=== PATIENT | male | born 1960 | race Caucasian/White ===

== ENCOUNTER 2018-07-11 23:26 | Inpatient (IN) | payer BC, OTHER ==
--- NOTE | 2018-07-12 00:22 | ED ---
Psych HPI - General Chief Complaint: Psychiatric Symptoms Stated Complaint: Mental Health Time Seen by Provider: 07/11/18 23:46 Source: police Mode of arrival: ambulatory - History of Present Illness Initial Comments: This patient is a 58-year-old man brought to have a psychiatric evaluation. The patient admits to attending a today, then states she had been doing some drinking. Following that he called his and he admits that he made some suicidal statements. Patient otherwise not discussing the episode that led to him being here. Stating that he just wants to leave. Complaint: other -: hour(s) Associated Psychiatric Symptoms: none History of same: No Improves With: none Worsens With: alcohol Context: recent alcohol abuse Associated Symptoms: denies other symptoms - Related Data Home Medications Medication Instructions Recorded Confirmed No Known Home Medications 07/12/18 07/12/18 Allergies Allergy/AdvReac Type Severity Reaction Status Date / Time No Known Allergies Allergy Verified 07/12/18 07:21 Review of Systems ROS Statement: Those systems with pertinent positive or pertinent negative responses have been documented in the HPI. ROS Other: All systems not noted in ROS Statement are negative. Constitutional: Denies: fever Respiratory: Denies: cough, dyspnea Cardiovascular: Denies: chest pain Gastrointestinal: Denies: abdominal pain Musculoskeletal: Denies: back pain Neurological: Denies: headache Psychiatric: Denies: depression, auditory hallucinations, homicidal thoughts, suicidal thoughts Past Medical History Past Medical History: No Reported History History of Any Multi-Drug Resistant Organisms: None Reported Past Surgical History: No Surgical Hx Reported Past Psychological History: No Psychological Hx Reported Smoking Status: Current every day smoker Past Alcohol Use History: Occasional Past Drug Use History: None Reported General Exam Limitations: no limitations General appearance: alert, appears intoxicated Eye exam: Present: normal appearance. Absent: scleral icterus, conjunctival injection ENT exam: Present: normal oropharynx Neck exam: Present: normal inspection, full ROM. Absent: tenderness Respiratory exam: Present: normal lung sounds bilaterally. Absent: respiratory distress, wheezes, rales, rhonchi, stridor Cardiovascular Exam: Present: regular rate, normal rhythm, normal heart sounds. Absent: systolic murmur, diastolic murmur, rubs, gallop GI/Abdominal exam: Present: soft. Absent: tenderness Neurological exam: Present: alert, oriented X3, CN II-XII intact, normal gait, other (Mild slurring of the speech and mild ataxia). Absent: motor sensory def icit Psychiatric exam: Present: suicidal ideation. Absent: depressed, agitated, anxious, flat affect, manic, homicidal ideation Skin exam: Present: warm, dry, intact, normal color. Absent: rash Course Vital Signs 07/11/18 07/12/18 23:33 06:36 Temperature 98.2 F Pulse Rate 115 H 69 Respiratory 20 16 Rate Blood Pressure 146/81 123/84 O2 Sat by Pulse 96 98 Oximetry Medical Decision Making - Lab Data Result diagrams: 07/13/18 07:50 07/13/18 07:50 Lab Results 07/12/18 Range/Units 00:12 Urine Color Light Yellow Urine Appearance Clear (Clear) Urine pH 6.0 (5.0-8.0) Ur Specific [place] 1.003 (1.001-1.035) Urine Protein Negative (Negative) Urine Glucose (UA) Negative (Negative) Urine Ketones Negative (Negative) Urine Blood Negative (Negative) Urine Nitrite Negative (Negative) Urine Bilirubin Negative (Negative) Urine Urobilinogen <2.0 (<2.0) mg/dL Ur Leukocyte Esterase Negative (Negative) Disposition Clinical Impression: Suicidal ideation Disposition: ADMITTED IP TO THIS [facility] Condition: Fair
[2018-07-12] MEDS ORDERED: ZIPRASIDONE 20 MG VIAL IM PRN (06:09)
[2018-07-12] MEDS ORDERED: MAGNESIUM HYDROXIDE 2,400 MG/10 ML CUP PO PRN (06:09)
[2018-07-12] MEDS ORDERED: LORazepam 1 MG TAB PO PRN (06:09)
[2018-07-12] MEDS ORDERED: ACETAMINOPHEN TAB 325 MG TAB PO PRN (06:09)
[2018-07-12] MEDS ORDERED: MAG HYDROX/AL HYDROX/SIMETH 30 ML CUP PO PRN (06:09)
[2018-07-12 06:40] LABS: Appearance,Urine Clear (Clear); Bilirubin,Urine Negative (Negative); Blood,Urine Negative (Negative); Color,Urine Light Yellow; Glucose,Urine (UA) Negative (Negative); Ketones,Urine Negative (Negative); Leukocyte Esterase,Urine Negative (Negative); Nitrite,Urine Negative (Negative); Protein,Urine Negative (Negative); Specific Gravity,Urine 1.003 (1.001-1.035); Urobilinogen,Urine <2.0 mg/dL (<2.0)
[2018-07-12 06:50] LABS: Amphetamine Screen,Urine Not Detected (NotDetected); Barbiturate Screen,Urine Not Detected (NotDetected); Benzodiazepines Screen,Urine Not Detected (NotDetected); Cocaine Screen,Urine Not Detected (NotDetected); Methadone Screen, Urine Not Detected (NotDetected); Opiate Screen,Urine Not Detected (NotDetected); Oxycodone Screen, Urine Not Detected (NotDetected); Phencyclidine Screen,Urine Not Detected (NotDetected); Tricyclic Antidepressant,Urine Not Detected (NotDetected); Urn Cannabinoid Scrn Not Detected (NotDetected)
[2018-07-12] MEDS: NICOTINE 14MG/24HR PATCH TRANSDERM SCH (09:16)
--- NOTE | 2018-07-12 11:30 | P.HP ---
Psychiatric H&P - . H&P Date: 07/12/18 History & Physical: Allergies Allergy/AdvReac Type Severity Reaction Status Date / Time No Known Allergies Allergy Verified 07/12/18 07:21 Vital Signs Temp 97.8 F 07/12/18 07:18 Pulse 70 07/12/18 07:18 Resp 18 07/12/18 07:18 BP 125/88 07/12/18 07:18 Pulse Ox 98 07/12/18 07:18 Intake & Output 07/11/18 07/12/18 07/12/18 18:59 06:59 18:59 Weight 83.915 kg Laboratory Last Values Urine Color Light Yellow 07/12/18 00:12 Urine Appearance Clear (Clear) 07/12/18 00:12 Urine pH 6.0 (5.0-8.0) 07/12/18 00:12 Ur Specific [place] 1.003 (1.001-1.035) 07/12/18 00:12 Urine Protein Negative (Negative) 07/12/18 00:12 Urine Glucose (UA) Negative (Negative) 07/12/18 00:12 Urine Ketones Negative (Negative) 07/12/18 00:12 Urine Blood Negative (Negative) 07/12/18 00:12 Urine Nitrite Negative (Negative) 07/12/18 00:12 Urine Bilirubin Negative (Negative) 07/12/18 00:12 Urine Urobilinogen <2.0 mg/dL (<2.0) 07/12/18 00:12 Ur Leukocyte Esterase Negative (Negative) 07/12/18 00:12 Urine Opiates Screen Not Detected (NotDetected) 07/12/18 06:36 Ur Oxycodone Screen Not Detected (NotDetected) 07/12/18 06:36 Urine Methadone Screen Not Detected (NotDetected) 07/12/18 06:36 Ur Propoxyphene Screen Not Detected (NotDetected) 07/12/18 06:36 Ur Barbiturates Screen Not Detected (NotDetected) 07/12/18 06:36 U Tricyclic Antidepress Not Detected (NotDetected) 07/12/18 06:36 Ur Phencyclidine Scrn Not Detected (NotDetected) 07/12/18 06:36 Ur Amphetamines Screen Not Detected (NotDetected) 07/12/18 06:36 U Methamphetamines Scrn Not Detected (NotDetected) 07/12/18 06:36 U Benzodiazepines Scrn Not Detected (NotDetected) 07/12/18 06:36 Urine Cocaine Screen Not Detected (NotDetected) 07/12/18 06:36 U Marijuana (THC) Screen Not Detected (NotDetected) 07/12/18 06:36 Assessment and Plan Assessment: This patient is a 58-year-old man brought to have a psychiatric evaluation. The patient admits to attending a today, then states she had been doing some drinking. Following that he called his and he admits that he made some suicidal statements. Patient otherwise not discussing the episode that led to him being here. Stating that he just wants to leave. Patient called his and was going to shoot himself. Patients called the api developer. Patient brought to ER by police. Per petition the patient had made suicidal statements to his and stated he was going to shoot himself. Also per petition there was a loaded gun found in the bathroom. UPon assessment by this proposal lead writer the patient is irritable and has angry undertones. Answers many questions with "I don't know." Patient states "Me and the are not seeing eye to eye." and "It's just a long series of these events." Patient would not explain what he meant by the statements of "these events." Spoke with patient's who petitioned the patient and she stated earlier in the day they had a small ar gument and he had been drinking. She states when he drinks he gets more argumentative and angry. states she did not want to be home when he was like that so she went to stay the night at her daughter's house and the patient repeatedly called her and made a statement to her that he was going to shoot himself in the bathroom so it would not make a big mess and told his to have a nice life. Pt was not very cooperative with assessment. Per pt's he does drink and states he becomes angry and argumentative and the drinking has gotten worse MD Complaint: other -: hour(s) Associated Psychiatric Symptoms: none History of same: No Improves With: none Worsens With: alcohol Context: recent alcohol abuse Associated Symptoms: denies other symptoms - Related Data Allergies Allergy/AdvReac Type Severity Reaction Status Date / Time No Known Allergies Allergy Verified 07/11/18 23:36 Past Medical History Past Medical History: No Reported History History of Any Multi-Drug Resistant Organisms: None Reported Past Surgical History: No Surgical Hx Reported Past Psychological History: No Psychological Hx Reported Smoking Status: Current every day smoker Past Alcohol Use History: Occasional Past Drug Use History: None Reported Musculoskeletal Examination - Abnormal/Involuntary Movements: [none Strength: [greater than antigravity (greater than/equal to 3/5) in all extremities:] Muscle Tone: [no impairment Gait: [grossly normal Station: [grossly normal Mental Status Examination - General Appearance: [well groomed, casual, appears older than stated age Speech/Language: [spontaneous, soft Attitude/Behavior: [cooperative Mood: [anxious, elated, irritable, angry, fearful, hopelessness Affect: [ lively, labile, blunted constricted, other] Orientation: [time, person, place situation] Thought Content: [wnl, delusions, obsessions, phobias, other] Risk Factors: [Admits to suicidal (ideations, plan), and/or Homicidal (ideations, plan), other] Perception: [wnl, denies hallucinations (auditory, visual, tactile), other] Thought Processes: [ concrete, circumstantial, tangential] Concentration/Attention Span: [wnl, impaired] [Per observation and interview with the patient] Recent Memory: [wnl Remote Memory: [wnl] [past events, as related history] Intelligence: [ average] [based on history, based on vocabulary, syntax, grammar, and content] Judgement: [ fair] [per patient's behavior/history of present illness] Insight: [ fair] [understanding severity of illness/history of present illness] Admitting Diagnosis: [Major depressive disorder single episode severe] Patient Strengths - Personal Skills: [x] Achievements: [x] Steady employment/financial stability: [x] Housing stability: [x] Patient Limitations: [ pathological/unsupported environment Initial Plan of Care: [He was admitted on an involuntary basis due to his wanting to kill himself with a gun stating that to his . He had evaluated by medicine psychiatry nursing staff sr. social media & mobile manager and occupational therapy. He will placed on 15 minute checks and usual protocol for the unit. He'll be further evaluated and biopsychosocial history and further have an understanding of appropriate treatment. He does not want to take any medications therefore weight for court hearing.] Estimated Length of Stay: [] Initial Discharge Plan: [home, [facility], referred to therapist, partial hospital, intensive outpatient, residential placement, other] Prognosis: [good, fair, guarded] Justification for Inpatient Hospitalization - [ depression resulting in significant loss of functioning.] [Dangerous to self, others, or property with need for controlled environment.] [Emotional or behavioral conditions and complications requiring 24 hour medical and nursing care.] [Need for special drug therapy, or other therapeutic program requiring continuous hospitalization.] [Failure of social or occupational functioning.] [Legally mandated admission.] (1) Major depressive disorder Current Visit: Yes Status: Acute Code(s): F32.9 - MAJOR DEPRESSIVE DISORDER, SINGLE EPISODE, UNSPECIFIED SNOMED Code(s): 250773180 Time with Patient: Less than 30
--- NOTE | 2018-07-12 11:54 | P.HPMEDMHU ---
History of Present Illness H&P Date: 07/12/18 (Consult from Dr. Ellis) Chief Complaint: Consult for U HPI The patient is a 58-year-old male with a past medical history of osteoarthritis in his neck and lower back with history of herniated disks that is admitted to the mental health unit after he was petitioned by his after expressing suicidal ideation at home. Apparently the patient had been drinking and stated to his is going to shoot himself after which the patient's called the local PD where apparently a loaded gun was found in the bathroom. During my interview the patient is denying any suicidal ideation and reports that he would not actually hurt himself or anyone around him. He denies any previous history of depression, denies any previous inpatient psychiatry treatment. His only complaints are of occasional neck pain and back pain, denies any chest pain shortness of breath nausea vomiting or abdominal pain. On admission his urinalysis was normal and his UDS was negative for any controlled substances Review of Systems Pertinent positives per HPI all other systems otherwise negative Past Medical History Past Medical History: No Reported History History of Any Multi-Drug Resistant Organisms: None Reported Past Surgical History: No Surgical Hx Reported Past Psychological History: No Psychological Hx Reported Smoking Status: Current every day smoker Past Alcohol Use History: Occasional Past Drug Use History: None Reported Medications and Allergies Home Medications Medication Instructions Recorded Confirmed Type No Known Home Medications 07/12/18 07/12/18 History Allergies Allergy/AdvReac Type Severity Reaction Status Date / Time No Known Allergies Allergy Verified 07/12/18 07:21 Physical Exam Vitals: Vital Signs Temp Pulse Pulse Resp BP BP Pulse Ox 07/12/18 07:18 97.8 F 70 18 125/88 98 07/12/18 06:36 69 16 123/84 98 07/11/18 23:33 98.2 F 115 H 20 146/81 96 Intake and Output 07/11/18 07/12/18 07/12/18 22:59 06:59 14:59 Other: Weight 83.915 kg Constitutional: No acute distress, conversant, pleasant Eyes: Anicteric sclerae, moist conjunctiva, no lid-lag, PERRLA ENMT: NC/AT,Oropharynx clear, no erythema, exudates Neck:Supple, FROM, no masses, or JVD, No carotid bruits; No thyromegaly Lungs: Clear to auscultation, Clear to percussion, Normal respiratory effort, no accessory muscle use Cardiovascular: Heart regular in rate and rhythm, No murmurs, gallops, or rubs no peripheral edema Abdominal: Soft Nontender, nom distended, no guarding, no rebound or rigidity, Normoactive bowel sounds No hepatomegaly, No splenomegaly, No palpable mass No abdominal wall hernia noted Skin: Normal temperature, tone, texture, turgor, No induration No subcutaneous nodules, No rash, lesions, No ulcers Extremities:No digital cyanosis No clubbing, Pedal pulses intact and symmetrical Radial pulses intact and symmetrical Normal gait and station, No calf tenderness Psychiatric: Alert and oriented to person, place and time,flat affect Neuro: Muscles Strength 5/5 in all 4 extremities, Sensation to light touch gr ossly present throughout, Cranial nerves II-XII grossly intact. No focal sensory deficits Cranial Nerve Examination - Cranial Nerves Cranial Nerve II- Optic: Intact Cranial Nerve III- Oculomotor: Intact Cranial Nerve IV- Trochlear: Intact Cranial Nerve V- Trigeminal: Intact Cranial Nerve - Abducens: Intact Cranial Nerve VII- Facial: Intact Cranial Nerve VIII- Auditory: Intact Cranial Nerve IX- Glossopharyngeal: Intact Cranial Nerve X- Vagus: Intact Cranial Nerve XI- Accessory: Intact Cranial Nerve XII- Hypoglossal: Intact Assessment and Plan (1) Suicidal ideation Current Visit: Yes Status: Acute Code(s): R45.851 - SUICIDAL IDEATIONS SNOMED Code(s): 1670472 (2) Major depressive disorder Current Visit: Yes Status: Acute Code(s): F32.9 - MAJOR DEPRESSIVE DISORDER, SINGLE EPISODE, UNSPECIFIED SNOMED Code(s): 307840860 (3) Osteoarthritis Current Visit: Yes Status: Acute Code(s): M19.90 - UNSPECIFIED OSTEOARTHRITIS, UNSPECIFIED SITE SNOMED Code(s): 184962709 Plan: The patient is admitted to the acute inpatient psychiatric team will defer to them regarding ongoing psychotropic and cognitive behavioral therapy treatment and management. Medically speaking the patient is medically stable and has no significant complaints. Pending his admissions labs will plan to sign off on the patient. Appreciate the opportunity to be involved in ongoing care of this patient, for further concerns please don't hesitate to contact the [facility] inpatient team
[2018-07-13 07:01] VITALS: RESP 16
[2018-07-13 08:28] LABS: Basophils # (A) 0.1 k/uL (0-0.2); Basophils % (A) 1 %; Eosinophils # (A) 0.1 k/uL (0-0.7); Eosinophils % (A) 3 %; HCT 47.6 % (39.0-53.0); HGB 15.4 gm/dL (13.0-17.5); Lymphocytes % (A) 18 %; MCH 32.7 pg (25.0-35.0); MCHC 32.4 g/dL (31.0-37.0); MCV 101.1 fL (80.0-100.0); Mean Platelet Volume 7.7; Monocytes # (A) 0.4 k/uL (0-1.0); Monocytes % (A) 7 %; Neutrophils # (A) 3.8 k/uL (1.3-7.7); Neutrophils % (A) 68 %; Platelet Count 242 k/uL (150-450); RBC 4.71 m/uL (4.30-5.90); RDW 12.4 % (11.5-15.5); WBC 5.6 k/uL (3.8-10.6)
[2018-07-13 08:36] LABS: ALT 30 U/L (21-72); AST 29 U/L (17-59); Albumin 4.2 g/dL (3.5-5.0); Alkaline Phosphatase 55 U/L (38-126); Anion Gap 6 mmol/L; Blood Urea Nitrogen 11 mg/dL (9-20); Calcium 9.6 mg/dL (8.4-10.2); Carbon Dioxide 28 mmol/L (22-30); Chloride 106 mmol/L (98-107); Cholesterol 162 mg/dL (<200); Glucose 96 mg/dL (74-99); HDL Cholesterol 64 mg/dL (40-60); LDL Cholesterol,Calculated 84 mg/dL (0-99); Sodium 140 mmol/L (137-145); Total Protein 7.1 g/dL (6.3-8.2); Triglycerides 72 mg/dL (<150)
[2018-07-13] MEDS: NICOTINE 14MG/24HR PATCH TRANSDERM SCH (09:55)
--- NOTE | 2018-07-13 11:28 | P.PN ---
Subjective Progress Note Date: 07/13/18 Principal diagnosis: Major depressive disorder single episode severe] This is a 58-year-old male who states that he called his state he was suicidal to get her attention because they live in separate bedrooms and they hardly talk. He is very difficult to explain himself has a loss for words and denies being depressed. He states it was probably not a good idea to his [id number] since [id number] killed himself couple years ago. He lacks any insight into how to communicate with his spouse as well as with other people. Objective - Vital Signs Vital signs: Vital Signs Temp 98.5 F 07/13/18 06:25 Pulse 60 07/13/18 06:25 Resp 16 07/13/18 06:25 BP 146/79 07/13/18 06:25 Pulse Ox 98 07/12/18 07:18 Intake & Output 07/12/18 07/13/18 07/13/18 18:59 06:59 18:59 Weight 87.098 kg - Labs CBC & Chem 7: 07/13/18 07:50 07/13/18 07:50 Labs: Abnormal Lab Results - Last 24 Hours (Table) 07/13/18 07/13/18 Range/Units 07:50 07:50 MCV 101.1 H (80.0-100.0) fL HDL Cholesterol 64 H (40-60) mg/dL Assessment and Plan Assessment: This patient is a 58-year-old man brought to have a psychiatric evaluation. The patient admits to attending a today, then states she had been doing some drinking. Following that he called his and he admits that he made some suicidal statements. Patient otherwise not discussing the episode that led to him being here. Stating that he just wants to leave. Patient called his and was going to shoot himself. Patients called the human resources compensation analyst. Patient brought to ER by police. Per petition the patient had made suicidal statements to his and stated he was going to shoot himself. Also per petition there was a loaded gun found in the bathroom. Upon assessment by staff the patient is irritable and has angry undertones. Answers many questions with "I don't know." Patient states "Me and the are not seeing eye to eye." and "It's just a long series of these events." Patient would not explain what he meant by the statements of "these events." Spoke with patient's who petitioned the patient and she stated earlier in the day they had a small argument and he had been drinking. She states when he drinks he gets more argumentative and angry. states she did not want to be home when he was like that so she went to stay the night at her daughter's house and the patient repeatedly called her and made a statement to her that he was going to shoot himself in the bathroom so it would not make a big mess and told his to have a nice life. Pt was not very cooperative with assessment. Per pt's he does drink and s tates he becomes angry and argumentative and the drinking has gotten worse MD Complaint: other -: hour(s) Associated Psychiatric Symptoms: none History of same: No Improves With: none Worsens With: alcohol Context: recent alcohol abuse Associated Symptoms: denies other symptoms - Related Data Allergies Allergy/AdvReac Type Severity Reaction Status Date / Time No Known Allergies Allergy Verified 07/11/18 23:36 Past Medical History Past Medical History: No Reported History History of Any Multi-Drug Resistant Organisms: None Reported Past Surgical History: No Surgical Hx Reported Past Psychological History: No Psychological Hx Reported Smoking Status: Current every day smoker Past Alcohol Use History: Occasional Past Drug Use History: None Reported Musculoskeletal Examination - Abnormal/Involuntary Movements: [none Strength: [greater than antigravity (greater than/equal to 3/5) in all extremities:] Muscle Tone: [no impairment Gait: [grossly normal Station: [grossly normal Mental Status Examination - General Appearance: [well groomed, casual, appears older than stated age Speech/Language: [spontaneous, soft Attitude/Behavior: [cooperative Mood: [anxious, elated, irritable, angry, fearful, hopelessness Affect: [ lively, labile, blunted constricted, other] Orientation: [time, person, place situation] Thought Content: [wnl, delusions, obsessions, phobias, other] Risk Factors: [Admits to suicidal (ideations, plan), and/or Homicidal (ideations, plan), other] Perception: [wnl, denies hallucinations (auditory, visual, tactile), other] Thought Processes: [ concrete, circumstantial, tangential] Concentration/Attention Span: [wnl, impaired] [Per observation and interview with the patient] Recent Memory: [wnl Remote Memory: [wnl] [past events, as related history] Intelligence: [ average] [based on history, based on vocabulary, syntax, grammar, and content] Judgement: [ fair] [per patient's behavior/history of present illness] Insight: [ fair] [understanding severity of illness/history of present illness] Admitting Diagnosis: [Major depressive disorder single episode severe] Patient Strengths - Personal Skills: [x] Achievements: [x] Steady employment/financial stability: [x] Housing stability: [x] Patient Limitations: [ pathological/unsupported environment Initial Plan of Care: [He was admitted on an involuntary basis due to his wanting to kill himself with a gun stating that to his . He had evaluated by medicine psychiatry nursing staff director social service and occupational therapy. He will placed on 15 minute checks and usual protocol for the unit. He'll be further evaluated and biopsychosocial history and further have an understanding of appropriate treatment. He does not want to take any medications therefore weight for court hearing.] Estimated Length of Stay: [5 days] Initial Discharge Plan: [home, [facility], referred to therapist, partial hospital, intensive outpatient, residential placement, other] Prognosis: [good, fair, guarded] Justification for Inpatient Hospitalization - [ depression resulting in significant loss of functioning.] [Dangerous to self, others, or property with need for controlled environment.] [Emotional or behavioral conditions and complications requiring 24 hour medical and nursing care.] [Need for special drug therapy, or other therapeutic program requiring continuous hospitalization.] [Failure of social or occupational functioning.] [Legally mandated admission.] (1) Major depressive disorder Current Visit: Yes Status: Acute Code(s): F32.9 - MAJOR DEPRESSIVE DISORDER, SINGLE EPISODE, UNSPECIFIED SNOMED Code(s): 308636246 Plan: He is involuntary and resistant to take any medications at this time. I think would be helpful to have a family meeting with the to get a better understa nding of his biopsychosocial standing in light since he is a very poor historian and gives cryptic answers and pleads with you to leave the hospital. Time with Patient: Less than 30
[2018-07-14] MEDS: NICOTINE 14MG/24HR PATCH TRANSDERM SCH (07:55)
[2018-07-14 12:23] LABS: Hemoglobin A1C 5.6 % (4.0-6.0)
--- NOTE | 2018-07-14 14:02 | P.PN ---
Subjective Progress Note Date: 07/14/18 Principal diagnosis: Major depressive disorder single episode severe] This is a 58-year-old male who states that he called his state he was suicidal to get her attention because they live in separate bedrooms and they hardly talk. He is very difficult to explain himself has a loss for words and denies being depressed. He states it was probably not a good idea to his [id number] since [id number] killed himself couple years ago. He lacks any insight into how to communicate with his spouse as well as with other people. 07/14/2018: This 58-year-old male has no insight why he would try to commit suicide nor does he have any insight into his own emotions. He acts very childlike at time wanting to talk to his but has nothing to say to her. He is very cryptic and not very enlightened regarding his mood. Objective - Vital Signs Vital signs: Vital Signs Temp 97.6 F 07/14/18 06:18 Pulse 62 07/14/18 06:18 Resp 16 07/14/18 06:18 BP 122/76 07/14/18 06:18 Pulse Ox 98 07/12/18 07:18 Intake & Output 07/13/18 07/14/18 07/14/18 18:59 06:59 18:59 Weight 87.098 kg - Labs CBC & Chem 7: 07/13/18 07:50 07/13/18 07:50 Assessment and Plan Assessment: This patient is a 58-year-old man brought to have a psychiatric evaluation. The patient admits to attending a today, then states she had been doing some drinking. Following that he called his and he admits that he made some suicidal statements. Patient otherwise not discussing the episode that led to him being here. Stating that he just wants to leave. Patient called his and was going to shoot himself. Patients called the mail messenger. Patient brought to ER by police. Per petition the patient had made suicidal statements to his and stated he was going to shoot himself. Also per petition there was a loaded gun found in the bathroom. Upon assessment by staff the patient is irritable and has angry undertones. Answers many questions with "I don't know." Patient states "Me and the are not seeing eye to eye." and "It's just a long series of these events." Patient would not explain what he meant by the statements of "these events." Spoke with patient's who petitioned the patient and she stated earlier in the day they had a small argument and he had been drinking. She states when he drinks he gets more argu mentative and angry. states she did not want to be home when he was like that so she went to stay the night at her daughter's house and the patient repeatedly called her and made a statement to her that he was going to shoot himself in the bathroom so it would not make a big mess and told his to have a nice life. Pt was not very cooperative with assessment. Per pt's he does drink and states he becomes angry and argumentative and the drinking has gotten worse MD Complaint: other -: hour(s) Associated Psychiatric Symptoms: none History of same: No Improves With: none Worsens With: alcohol Context: recent alcohol abuse Associated Symptoms: denies other symptoms - Related Data Allergies Allergy/AdvReac Type Severity Reaction Status Date / Time No Known Allergies Allergy Verified 07/11/18 23:36 Past Medical History Past Medical History: No Reported History History of Any Multi-Drug Resistant Organisms: None Reported Past Surgical History: No Surgical Hx Reported Past Psychological History: No Psychological Hx Reported Smoking Status: Current every day smoker Past Alcohol Use History: Occasional Past Drug Use History: None Reported Musculoskeletal Examination - Abnormal/Involuntary Movements: [none Strength: [greater than antigravity (greater than/equal to 3/5) in all extremities:] Muscle Tone: [no impairment Gait: [grossly normal Station: [grossly normal Mental Status Examination - General Appearance: [well groomed, casual, appears older than stated age Speech/Language: [spontaneous, soft Attitude/Behavior: [cooperative Mood: [anxious, elated, irritable, angry, fearful, hopelessness Affect: [ lively, labile, blunted constricted, other] Orientation: [time, person, place situation] Thought Content: [wnl, delusions, obsessions, phobias, other] Risk Factors: [Admits to suicidal (ideations, plan), and/or Homicidal (ideations, plan), other] Perception: [wnl, denies hallucinations (auditory, visual, tactile), other] Thought Processes: [ concrete, circumstantial, tangential] Concentration/Attention Span: [wnl, impaired] [Per observation and interview with the patient] Recent Memory: [wnl Remote Memory: [wnl] [past events, as related history] Intelligence: [ average] [based on history, based on vocabulary, syntax, grammar, and content] Judgement: [ fair] [per patient's behavior/history of present illness] Insight: [ fair] [understanding severity of illness/history of present illness] Admitting Diagnosis: [Major depressive disorder single episode severe] Patient Strengths - Personal Skills: [x] Achievements: [x] Steady employment/financial stability: [x] Housing stability: [x] Patient Limitations: [ pathological/unsupported environment Initial Plan of Care: [He was admitted on an involuntary basis due to his wanting to kill himself with a gun stating that to his . He had evaluated by medicine psychiatry nursing staff social services specialist and occupational therapy. He will placed on 15 minute checks and usual protocol for the unit. He'll be further evaluated and biopsychosocial history and further have an understanding of appropriate treatment. He does not want to take any medications therefore weight for court hearing.] Estimated Length of Stay: [5 days] Initial Discharge Plan: [home, [facility], referred to therapist, partial hospital, intensive outpatient, residential placement, other] Prognosis: [good, fair, guarded] Justification for Inpatient Hospitalization - [ depression resulting in significant loss of functioning.] [Dangerous to self, others, or property with need for controlled environment.] [Emotional or behavioral conditions and complications requiring 24 hour medical and nursing care.] [Need for special drug therapy, or other therapeutic program requiring continuous hospitalization.] [Failure of social or occupational functioning.] [Legally mandated admission.] (1) Major depressive disorder Current Visit: Yes Status: Acute Code(s): F32.9 - MAJOR DEPRESSIVE DISORDER, SINGLE EPISODE, UNSPECIFIED SNOMED Code(s): 368527871 Plan: He is involuntary and resistant to take any medications at this time. I think would be helpful to have a family meeting with the to get a better unde rstanding of his biopsychosocial standing in light since he is a very poor historian and gives cryptic answers and pleads with you to leave the hospital. 07/14/2018: He is mandated for involuntary psychiatric treatment [facility]. Now waiting his probate Court hearing for treatment of his mental illness depression. Time with Patient: Less than 30
[2018-07-15] MEDS: NICOTINE 14MG/24HR PATCH TRANSDERM SCH (08:29)
--- NOTE | 2018-07-15 13:01 | P.PN ---
Subjective Progress Note Date: 07/15/18 Principal diagnosis: Major depressive disorder single episode severe] This is a 58-year-old male who states that he called his state he was suicidal to get her attention because they live in separate bedrooms and they hardly talk. He is very difficult to explain himself has a loss for words and denies being depressed. He states it was probably not a good idea to his [id number] since [id number] killed himself couple years ago. He lacks any insight into how to communicate with his spouse as well as with other people. 07/14/2018: This 58-year-old male has no insight why he would try to commit suicide nor does he have any insight into his own emotions. He acts very childlike at time wanting to talk to his but has nothing to say to her. He is very cryptic and not very enlightened regarding his mood. 07/15/2018: This is a 58-year-old male who still shows little insight about his impulsive desire to get the attention of his by stating that he wants to kill himself with a gun. He also isn't marycruz denial about his alcoholism. He is a high risk if he leaves now for he will go drink and . Objective - Vital Signs Vital signs: Vital Signs Temp 97.7 F 07/15/18 06:05 Pulse 80 07/15/18 06:05 Resp 16 07/15/18 06:05 BP 127/78 07/15/18 06:05 Pulse Ox 98 07/12/18 07:18 - Labs CBC & Chem 7: 07/13/18 07:50 07/13/18 07:50 Assessment and Plan Assessment: This patient is a 58-year-old man brought to have a psychiatric evaluation. The patient admits to attending a today, then states she had been doing some drinking. Following that he called his and he admits that he made some suicidal statements. Patient otherwise not discussing the episode that led to him being here. Stating that he just wants to leave. Patient called his and was going to shoot himself. Patients called the world renowned chef and restaurant owner. Patient brought to ER by police. Per petition the patient had made suicidal statements to his and stated he was going to shoot himself. Also per petition there was a loaded gun found in the bathroom. Upon assessment by staff the patient is irritable and has angry undertones. Answers many questions with "I don't know." Patient states "Me and the are not seeing eye to eye." and "It's just a long series of these events." Patient would not explain what he meant by the statements of "these events." Spoke with patient's who petitioned the patient and she stated earlier in the day they had a small argument and he had been drinking. She states when he drinks he gets more argumentative and angry. states she did not want to be home when he was like that so she went to stay the night at her daughter's house and the patient repeatedly called her and made a statement to her that he was going to shoot himself in the bathroom so it would not make a big mess and told his to have a nice life. Pt was not very cooperative with assessment. Per pt's he does drink and states he becomes angry and argumentative and the drinking has gotten worse MD Complaint: other -: hour(s) Associated Psychiatric Symptoms: none History of same: No Improves With: none Worsens With: alcohol Context: recent alcohol abuse Associated Symptoms: denies other symptoms - Related Data Allergies Allergy/AdvReac Type Severity Reaction Status Date / Time No Known Allergies Allergy Verified 07/11/18 23:36 Past Medical History Past Medical History: No Reported History History of Any Multi-Drug Resistant Organisms: None Reported Past Surgical History: No Surgical Hx Reported Past Psychological History: No Psychological Hx Reported Smoking Status: Current every day smoker Past Alcohol Use History: Occasional Past Drug Use History: None Reported Musculoskeletal Examination - Abnormal/Involuntary Movements: [none Strength: [greater than antigravity (greater than/equal to 3/5) in all extremities:] Muscle Tone: [no impairment Gait: [grossly normal Station: [grossly normal Mental Status Examination - General Appearance: [well groomed, casual, appears older than stated age Speech/Language: [spontaneous, soft Attitude/Behavior: [cooperative Mood: [anxious, elated, irritable, angry, fearful, hopelessness Affect: [ lively, labile, blunted constricted, other] Orientation: [time, person, place situation] Thought Content: [wnl, delusions, obsessions, phobias, other] Risk Factors: [Admits to suicidal (ideations, plan), and/or Homicidal (ideations, plan), other] Perception: [wnl, denies hallucinations (auditory, visual, tactile), other] Thought Processes: [ concrete, circumstantial, tangential] Concentration/Attention Span: [wnl, impaired] [Per observation and interview with the patient] Recent Memory: [wnl Remote Memory: [wnl] [past events, as related history] Intelligence: [ average] [based on history, based on vocabulary, syntax, grammar, and content] Judgement: [ fair] [per patient's behavior/history of present illness] Insight: [ fair] [understanding severity of illness/history of present illness] Admitting Diagnosis: [Major depressive disorder single episode severe; alcohol use disorder severe] Initial Plan of Care: [He was admitted on an involuntary basis due to his wanting to kill himself with a gun stating that to his . He had evaluated by medicine psychiatry nursing staff social media specialist and occupational therapy. He will placed on 15 minute checks and usual protocol for the unit. He'll be further evaluated and biopsychosocial history and further have an understanding of appropriate treatment. He does not want to take any medications therefore weight for court hearing.] Estimated Length of Stay: [5 days] Initial Discharge Plan: [ residential placement for substance abuse] Prognosis: [ fair] Justification for Inpatient Hospitalization - [ depression resulting in significant loss of functioning.] [Dangerous to self, others, or property with need for controlled environment.] [Emotional or behavioral conditions and complications requiring 24 hour medical and nursing care.] [Need for special drug therapy, or other therapeutic program requiring continuou s hospitalization.] [Failure of social or occupational functioning.] [Legally mandated admission.] (1) Major depressive disorder Current Visit: Yes Status: Acute Code(s): F32.9 - MAJOR DEPRESSIVE DISORDER, SINGLE EPISODE, UNSPECIFIED SNOMED Code(s): 333513036 Plan: He is involuntary and resistant to take any medications at this time. I think would be helpful to have a family meeting with the to get a better understanding of his biopsychosocial standing in light since he is a very poor historian and gives cryptic answers and pleads with you to leave the hospital. 07/14/2018: He is mandated for involuntary psychiatric treatment here at [facility]. Now waiting his probate Court hearing for treatment of his mental illness depression. 07/15/2018: Reviewed in detail today with patient have his impulsive nature and will use Zoloft 25 mg by mouth daily at bedtime and ReVia 50 mg by mouth daily at bedtime. He is to find a residential treatment facility to go to sense that he was released today is at high risk of relapse and more impulsive behavior. 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 Time with Patient: Less than 30
[2018-07-15] MEDS: NALTREXONE HCL 50 MG TAB PO SCH (21:05)
[2018-07-15] MEDS: SERTRALINE 25 MG TAB PO SCH (21:07)
[2018-07-16] MEDS: NICOTINE 14MG/24HR PATCH TRANSDERM SCH (13:08)
--- NOTE | 2018-07-16 13:53 | P.PN ---
Subjective Progress Note Date: 07/16/18 Principal diagnosis: Major depressive disorder single episode severe] This is a 58-year-old male who states that he called his state he was suicidal to get her attention because they live in separate bedrooms and they hardly talk. He is very difficult to explain himself has a loss for words and denies being depressed. He states it was probably not a good idea to his [id number] since fixedgz-hc-[id number] killed himself couple years ago. He lacks any insight into how to communicate with his spouse as well as with other people. 07/14/2018: This 58-year-old male has no insight why he would try to commit suicide nor does he have any insight into his own emotions. He acts very childlike at time wanting to talk to his but has nothing to say to her. He is very cryptic and not very enlightened regarding his mood. 07/15/2018: This is a 58-year-old male who still shows little insight about his impulsive desire to get the attention of his by stating that he wants to kill himself with a gun. He also isn't marycruz denial about his alcoholism. He is a high risk if he leaves now for he will go drink and . 07/16/2018: This 58-year-old male had a meeting with his yesterday and admits that he does have alcohol use disorder severe is willing to go to treatment 30 day period he was able to take his medications last night and Zoloft and ReVia without side effects. Objective - Vital Signs Vital signs: Vital Signs Temp 98.1 F 07/16/18 06:58 Pulse 61 07/16/18 06:58 Resp 16 07/16/18 06:58 BP 135/81 07/16/18 06:58 Pulse Ox 98 07/12/18 07:18 - Labs CBC & Chem 7: 07/13/18 07:50 07/13/18 07:50 Assessment and Plan Assessment: This patient is a 58-year-old man brought to have a psychiatric evaluation. The patient admits to attending a today, then states she had been doing some drinking. Following that he called his and he admits that he made some suicidal statements. Patient otherwise not discussing the episode that led to him being here. Stating that he just wants to leave. Patient called his and was going to shoot himself. Patients called the biophysics professor. Patient brought to ER by police. Per petition the patient had made suicidal statements to his and stated he was going to shoot himself. Also per petition there was a loaded gun found in the bathroom. Upon assessment by staff the patient is irritable and has angry undertones. Answers many questions with "I don't know." Patient states "Me and the are not seeing eye to eye." and "It's just a long series of these events." Patient would not explain what he meant by the statements of "these events." Spoke with patient's who petitioned the patient and she stated earlier in the day they had a small argument and he had been drinking. She states when he drinks he gets more argumentative and angry. states she did not want to be home when he was like that so she went to stay the night at her daughter's house and the patient repeatedly called her and made a statement to her that he was going to shoot himself in the bathroom so it would not make a big mess and told his to rojas ve a nice life. Pt was not very cooperative with assessment. Per pt's he does drink and states he becomes angry and argumentative and the drinking has gotten worse MD Complaint: other -: hour(s) Associated Psychiatric Symptoms: none History of same: No Improves With: none Worsens With: alcohol Context: recent alcohol abuse Associated Symptoms: denies other symptoms - Related Data Allergies Allergy/AdvReac Type Severity Reaction Status Date / Time No Known Allergies Allergy Verified 07/11/18 23:36 Past Medical History Past Medical History: No Reported History History of Any Multi-Drug Resistant Organisms: None Reported Past Surgical History: No Surgical Hx Reported Past Psychological History: No Psychological Hx Reported Smoking Status: Current every day smoker Past Alcohol Use History: Occasional Past Drug Use History: None Reported Musculoskeletal Examination - Abnormal/Involuntary Movements: [none Strength: [greater than antigravity (greater than/equal to 3/5) in all extremities:] Muscle Tone: [no impairment Gait: [grossly normal Station: [grossly normal Mental Status Examination - General Appearance: [well groomed, casual, appears older than stated age Speech/Language: [spontaneous, soft Attitude/Behavior: [cooperative Mood: [anxious, elated, irritable, angry, fearful, hopelessness Affect: [ lively, labile, blunted constricted, other] Orientation: [time, person, place situation] Thought Content: [wnl, delusions, obsessions, phobias, other] Risk Factors: [Admits to suicidal (ideations, plan), and/or Homicidal (ideations, plan), other] Perception: [wnl, denies hallucinations (auditory, visual, tactile), other] Thought Processes: [ concrete, circumstantial, tangential] Concentration/Attention Span: [wnl, impaired] [Per observation and interview with the patient] Recent Memory: [wnl Remote Memory: [wnl] [past events, as related history] Intelligence: [ average] [based on history, based on vocabulary, syntax, grammar, and content] Judgement: [ fair] [per patient's behavior/history of present illness] Insight: [ fair] [understanding severity of illness/history of present illness] Admitting Diagnosis: [Major depressive disorder single episode severe; alcohol use disorder severe] Initial Plan of Care: [He was admitted on an involuntary basis due to his wanting to kill himself with a gun stating that to his . He had evaluated by medicine psychiatry nursing staff community mental health social worker and occupational therapy. He will placed on 15 minute checks and usual protocol for the unit. He'll be fur ther evaluated and biopsychosocial history and further have an understanding of appropriate treatment. He does not want to take any medications therefore weight for court hearing.] Estimated Length of Stay: [2 days] Initial Discharge Plan: [ residential placement for substance abuse] Prognosis: [ fair] Justification for Inpatient Hospitalization - [ depression resulting in significant loss of functioning.] [Dangerous to self, others, or property with need for controlled environment.] [Emotional or behavioral conditions and complications requiring 24 hour medical and nursing care.] [Need for special drug therapy, or other therapeutic program requiring continuous hospitalization.] [Failure of social or occupational functioning.] [Legally mandated admission.] (1) Major depressive disorder Current Visit: Yes Status: Acute Code(s): F32.9 - MAJOR DEPRESSIVE DISORDER, SINGLE EPISODE, UNSPECIFIED SNOMED Code(s): 949392675 Plan: He is involuntary and resistant to take any medications at this time. I think would be helpful to have a family meeting with the to get a better understanding of his biopsychosocial standing in light since he is a very poor historian and gives cryptic answers and pleads with you to leave the hospital. 07/14/2018: He is mandated for involuntary psychiatric treatment here at [address] [place] [address]. Now waiting his probate [address] hearing for treatment of his mental illness depression. 07/15/2018: Reviewed in detail today with patient have his impulsive nature and will use Zoloft 25 mg by mouth daily at bedtime and ReVia 50 mg by mouth daily at bedtime. He is to find a residential treatment facility to go to sense that he was released today is at high risk of relapse and more impulsive behavior. 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 07/16/2018: Reviewed in detail with the patient regarding his impulsive nature i llness discussed yesterday and he was able to tolerate Zoloft at bedtime and ReVia without consequence. He has a much brighter affect today and more engaged in treatment. He is a high risk if he goes home now he will relapse in drinking and his won't let him home as well without substance abuse treatment. Time with Patient: Less than 30
[2018-07-16] MEDS: MULTIVITAMINS, THERA 1 EACH TAB PO SCH (16:45)
[2018-07-16] MEDS: SERTRALINE 25 MG TAB PO SCH (21:00)
[2018-07-16] MEDS: NALTREXONE HCL 50 MG TAB PO SCH (21:00)
[2018-07-17] MEDS: NICOTINE 14MG/24HR PATCH TRANSDERM SCH (07:50)
[2018-07-17] MEDS: MULTIVITAMINS, THERA 1 EACH TAB PO SCH ×2 (07:50→17:58)
--- NOTE | 2018-07-17 10:17 | P.PN ---
Subjective Progress Note Date: 07/17/18 Principal diagnosis: Major depressive disorder single episode severe] This is a 58-year-old male who states that he called his state he was suicidal to get her attention because they live in separate bedrooms and they hardly talk. He is very difficult to explain himself has a loss for words and denies being depressed. He states it was probably not a good idea to his [id number] since [id number] killed himself couple years ago. He lacks any insight into how to communicate with his spouse as well as with other people. 07/14/2018: This 58-year-old male has no insight why he would try to commit suicide nor does he have any insight into his own emotions. He acts very childlike at time wanting to talk to his but has nothing to say to her. He is very cryptic and not very enlightened regarding his mood. 07/15/2018: This is a 58-year-old male who still shows little insight about his impulsive desire to get the attention of his by stating that he wants to kill himself with a gun. He also isn't marycruz denial about his alcoholism. He is a high risk if he leaves now for he will go drink and . 07/16/2018: This 58-year-old male had a meeting with his yesterday and admits that he does have alcohol use disorder severe is willing to go to treatment 30 day period he was able to take his medications last night and Zoloft and ReVia without side effects. Objective - Vital Signs Vital signs: Vital Signs Temp 97.7 F 07/17/18 06:08 Pulse 62 07/17/18 06:08 Resp 16 07/17/18 06:08 BP 136/80 07/17/18 06:08 Pulse Ox 98 07/12/18 07:18 - Labs CBC & Chem 7: 07/13/18 07:50 07/13/18 07:50 Assessment and Plan Assessment: This patient is a 58-year-old man brought to have a psychiatric evaluation. The patient admits to attending a today, then states she had been doing some drinking. Following that he called his and he admits that he made some suicidal statements. Patient otherwise not discussing the episode that led to him being here. Stating that he just wants to leave. Patient called his and was going to shoot himself. Patients called the team truck driver. Patient brought to ER by police. Per petition the patient had made suicidal statements to his and stated he was going to shoot himself. Also per petition there was a loaded gun found in the bathroom. Upon assessment by staff the patient is irritable and has angry undertones. Answers many questions with "I don't know." Patient states "Me and the are not seeing eye to eye." and "It's just a long series of these events." Patient would not explain what he meant by the statements of "these events." Spoke with patient's who petitioned the patient and she stated earlier in the day they had a small argument and he had been drinking. She states when he drinks he gets more argumentative and angry. states she did not want to be home when he was like that so she went to stay the night at her daughter's house and the patient repeatedly called her and made a statement to her that he was going to shoot himself in the bathroom so it would not make a big mess and told his to rojas ve a nice life. Pt was not very cooperative with assessment. Per pt's he does drink and states he becomes angry and argumentative and the drinking has gotten worse MD Complaint: other -: hour(s) Associated Psychiatric Symptoms: none History of same: No Improves With: none Worsens With: alcohol Context: recent alcohol abuse Associated Symptoms: denies other symptoms - Related Data Allergies Allergy/AdvReac Type Severity Reaction Status Date / Time No Known Allergies Allergy Verified 07/11/18 23:36 Past Medical History Past Medical History: No Reported History History of Any Multi-Drug Resistant Organisms: None Reported Past Surgical History: No Surgical Hx Reported Past Psychological History: No Psychological Hx Reported Smoking Status: Current every day smoker Past Alcohol Use History: Occasional Past Drug Use History: None Reported Musculoskeletal Examination - Abnormal/Involuntary Movements: [none Strength: [greater than antigravity (greater than/equal to 3/5) in all extremities:] Muscle Tone: [no impairment Gait: [grossly normal Station: [grossly normal Mental Status Examination - General Appearance: [well groomed, casual, appears older than stated age Speech/Language: [spontaneous, soft Attitude/Behavior: [cooperative Mood: [anxious, elated, irritable, angry, fearful, hopelessness Affect: [ lively, labile, blunted constricted, other] Orientation: [time, person, place situation] Thought Content: [wnl, delusions, obsessions, phobias, other] Risk Factors: [Admits to suicidal (ideations, plan), and/or Homicidal (ideations, plan), other] Perception: [wnl, denies hallucinations (auditory, visual, tactile), other] Thought Processes: [ concrete, circumstantial, tangential] Concentration/Attention Span: [wnl, impaired] [Per observation and interview with the patient] Recent Memory: [wnl Remote Memory: [wnl] [past events, as related history] Intelligence: [ average] [based on history, based on vocabulary, syntax, grammar, and content] Judgement: [ fair] [per patient's behavior/history of present illness] Insight: [ fair] [understanding severity of illness/history of present illness] Admitting Diagnosis: [Major depressive disorder single episode severe; alcohol use disorder severe] Initial Plan of Care: [He was admitted on an involuntary basis due to his wanting to kill himself with a gun stating that to his . He had evaluated by medicine psychiatry nursing staff social welfare research worker and occupational therapy. He will placed on 15 minute checks and usual protocol for the unit. He'll be fur ther evaluated and biopsychosocial history and further have an understanding of appropriate treatment. He does not want to take any medications therefore weight for court hearing.] Estimated Length of Stay: [2 days] Initial Discharge Plan: [ residential placement for substance abuse] Prognosis: [ fair] Justification for Inpatient Hospitalization - [ depression resulting in significant loss of functioning.] [Dangerous to self, others, or property with need for controlled environment.] [Emotional or behavioral conditions and complications requiring 24 hour medical and nursing care.] [Need for special drug therapy, or other therapeutic program requiring continuous hospitalization.] [Failure of social or occupational functioning.] [Legally mandated admission.] (1) Major depressive disorder Current Visit: Yes Status: Acute Code(s): F32.9 - MAJOR DEPRESSIVE DISORDER, SINGLE EPISODE, UNSPECIFIED SNOMED Code(s): 958665982 Plan: He is involuntary and resistant to take any medications at this time. I think would be helpful to have a family meeting with the to get a better understanding of his biopsychosocial standing in light since he is a very poor historian and gives cryptic answers and pleads with you to leave the hospital. 07/14/2018: He is mandated for involuntary psychiatric treatment here at [address] [place] [address]. Now waiting his probate Court hearing for treatment of his mental illness depression. 07/15/2018: Reviewed in detail today with patient have his impulsive nature and will use Zoloft 25 mg by mouth daily at bedtime and ReVia 50 mg by mouth daily at bedtime. He is to find a residential treatment facility to go to sense that he was released today is at high risk of relapse and more impulsive behavior. 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 07/16/2018: Reviewed in detail with the patient regarding his impulsive nature i llness discussed yesterday and he was able to tolerate Zoloft at bedtime and ReVia without consequence. He has a much brighter affect today and more engaged in treatment. He is a high risk if he goes home now he will relapse in drinking and his won't let him home as well without substance abuse treatment. Time with Patient: Less than 30
[2018-07-17] MEDS: NALTREXONE HCL 50 MG TAB PO SCH (22:03)
[2018-07-17] MEDS: SERTRALINE 25 MG TAB PO SCH (22:04)
[2018-07-18 06:10] VITALS: BP 157/86; PULSE 65; TEMP 97.5
[2018-07-18] MEDS: MULTIVITAMINS, THERA 1 EACH TAB PO SCH (08:04)
--- NOTE | 2018-07-18 09:02 | P.DS ---
Providers Date of admission: 07/12/18 06:07 Expected date of discharge: 07/18/18 Attending physician: Pk Ellis DO Consults: 07/12/18 06:09 Consult Physician Routine Consulting Provider: Renu Montejo Consult Reason/Comments: Medical H and P Do you want consulting provider notified?: Yes Primary care physician: Stated None - Discharge Diagnosis(es) (1) Major depressive disorder This patient is a 58-year-old man brought to have a psychiatric evaluation. The patient admits to attending a today, then states she had been doing some drinking. Following that he called his and he admits that he made some suicidal statements. Patient otherwise not discussing the episode that led to him being here. Stating that he just wants to leave. Patient called his and was going to shoot himself. Patients called the typewriter operator automatic. Patient brought to ER by police. Per petition the patient had made suicidal statements to his and stated he was going to shoot himself. Also per petition there was a loaded gun found in the bathroom. UPon assessment by this service writer advisor the patient is irritable and has angry undertones. Answers many questions with "I don't know." Patient states "Me and the are not seeing eye to eye." and "It's just a long series of these events." Patient would not explain what he meant by the statements of "these events." Spoke with patient's who petitioned the patient and she stated earlier in the day they had a small argument and he had been drinking. She states when he drinks he gets more argumentative and angry. states she did not want to be home when he was like that so she went to stay the night at her daughter's house and the patient repeatedly called her and made a statement to her that he was going to shoot himself in the bathroom so it would not make a big mess and told his to have a nice life. Pt was not very cooperative with assessment. Per pt's he does drink and states he becomes angry and argumentative and the drinking has gotten worse MD Complaint: other -: hour(s) Associated Psychiatric Symptoms: none History of same: No Improves With: none Worsens With: alcohol Context: recent alcohol abuse Associated Symptoms: denies other symptoms - Related Data Allergies Allergy/AdvReac Type Severity Reaction Status Date / Time No Known Allergies Allergy Verified 07/11/18 23:36 Past Medical History Past Medical History: No Reported History History of Any Multi-Drug Resistant Organisms: None Reported Past Surgical History: No Surgical Hx Reported Past Psychological History: No Psychological Hx Reported Smoking Status: Current every day smoker Past Alcohol Use History: Occasional Past Drug Use History: None Reported Current Visit: Yes Status: Acute Priority: Low Hospital Course: Plan: He is involuntary and resistant to take any medications at this time. I think would be helpful to have a family meeting with the to get a better understanding of his biopsychosocial standing in light since he is a very poor historian and gives cryptic answers and pleads with you to leave the hospital. 07/14/2018: He is mandated for involuntary psychiatric treatment here at [address] [place] [address]. Now waiting his prob[address] hearing for treatment of his mental illness depression. 07/15/2018: Reviewed in detail today with patient have his impulsive nature and will use Zoloft 25 mg by mouth daily at bedtime and ReVia 50 mg by mouth daily at bedtime. He is to find a residential treatment facility to go to sense that he was released today is at high risk of relapse and more impulsive behavior. 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 07/16/2018: Reviewed in detail with the patient regarding his impulsive nature illness discussed yesterday and he was able to tolerate Zoloft at bedtime and ReVia without consequence. He has a much brighter affect today and more engaged in treatment. He is a high risk if he goes home now he will relapse in drinking and his won't let him home as well without substance abuse treatment. Mental status examination time of discharge: The patient presents alert, pleasant, and cooperative. There calmly seated without any agitated behavior. [He] reports that [his] mood is good. Affect is congruent and euthymic. [He] deny having any suicidal or homicidal ideation intent or plan. [He] denies any auditory or visual hallucinations. There is no evidence of any delusional thought content. [He is] thought process is linear and goal-directed. [He has] speech is fluent and nonpressured. [His] memory and concentration is grossly intact for the purposes of this session. Patient Condition at Discharge: Stable Plan - Discharge Summary New Discharge Prescriptions: New Naltrexone HCl [Revia] 50 mg PO 2100 30 Days #30 tab Sertraline [Zoloft] 25 mg PO 2100 30 Days #30 tab Discharge Medication List Naltrexone HCl [Revia] 50 mg PO 2100 30 Days #30 tab 07/18/18 [Rx] Sertraline [Zoloft] 25 mg PO 2100 30 Days #30 tab 07/18/18 [Rx] Follow up Appointment(s)/Referral(s): [facility] [Outside] - 07/18/18 12:15 pm () None,Stated [Primary Care Provider] - 1-2 days Patient Instructions/Handouts: Depression (DC), Alcohol Intoxication (DC), Help Prevent Suicide (DC) Activity/Diet/Wound Care/Special Instructions: Activity and diet as tolerated. No guns or weapons in the home. Refrain from alcohol and drugs not prescribed by physician. Attend all follow up appointments as scheduled. Take all medications as prescribed. In need of refills on medications, please go to your out patient primary care physician, or your psychiatric provider. If in crisis, please call , or go to the nearest ER. Discharge Disposition: HOME SELF-CARE
== END 2018-07-18 09:31 | disposition home or self-care (01) | DRG 885 ==
LOC: EC 23:26 → 3MHU 07-12 06:07
PROVIDERS: ADMIT Psychiatry & Neurology Psychiatry; ATTEND Psychiatry & Neurology Psychiatry
DX: F32.2 Major depressive disorder, single episode, severe without psychotic features (principal); R45.851 Suicidal ideations; F10.10 Alcohol abuse, uncomplicated; F17.200 Nicotine dependence, unspecified, uncomplicated; R45.87 Impulsiveness
CPT/HCPCS: 80053; 80061; 80306; 81003; 82075; 83036; 84443; 85025; 99285